=== PATIENT | male | born 1960 | race Caucasian/White ===

== ENCOUNTER 2016-10-14 00:05 | Day surgery (SDC) | payer OTHER ==
[~2016-10-14] VITALS: Ht 177.8 cm; Wt 86.2 kg
[~2016-10-14 00:05] MED LIST: FLUC150T48 PO; LEVO100T6 PO
[2016-10-14] MEDS ORDERED: fentaNYL-PF 50 mCg/mL 2 mL Inj IVPUSH PRN (06:00)
[2016-10-14] MEDS ORDERED: 0.9% Sodium Chloride 1,000 ML IV SCH (06:00)
[2016-10-14] MEDS ORDERED: Sodium Chloride LOK Flush 10 mL Syringe IV PRN (06:00)
[2016-10-14] MEDS ORDERED: NPR500T PO (08:10)
[2016-10-14 08:11] VITALS: BP 137/79; PULSE 64; RESP 16; O2SAT 98
[2016-10-14 09:19] VITALS: BP 112/71; PULSE 55; RESP 16; O2SAT 96
[2016-10-14 09:29] VITALS: BP 112/71; PULSE 52; RESP 16; O2SAT 97
[2016-10-14 09:49] VITALS: BP 122/70; PULSE 60; RESP 16; O2SAT 98
--- NOTE | 2016-10-14 16:29 | ENDO ---
[address] [address] ENDOSCOPY PROCEDURE PATIENT: JAMSHID ARAUJO : 1960 MR#: [id number] ADMIT: 10/14/2016 JOB ID: [id number] DATE: 10/14/2016 PROCEDURE: Colonoscopy. INDICATIONS: Screening. The patient's ASA classification is 1. Mallampati score was 1. MEDICATIONS: 1. Versed 4 mg. 2. Fentanyl 100 mcg. INSTRUMENT USED: PCF H 180 AL. Prep quality was fair. PROCEDURE DETAILS: After informed consent was obtained, the patient was brought into the GI suite, where he was placed on oxygen via nasal cannula and monitored with continuous pulse oximeter, telemetry and blood pressure monitoring. A time-out was performed. Then, he was placed in the left lateral decubitus position and medications were administered for sedation. Digital rectal examination was performed, which revealed what appeared to be a healed scar on the left perianal area consistent with patient's prior history of a rectal abscess approximately 10-12 years ago. He was complaining of some pain at that site. I do not see any evidence of induration of the mucosa or any drainage noted at the site. Digital rectal examination was performed, which was otherwise unremarkable. He had some mild tenderness in the anus with digital palpation. At this point, the colonoscope was then placed to the rectum and advanced under direct visualization to the cecum, which was identified by the presence of the ileocecal valve and appendiceal orifice. Once the cecum was reached, the colonoscope was withdrawn back into the rectum and retroflexion was performed. Following retroflexion, the scope was then slowly withdrawn and the anal canal was examined and appeared unremarkable. IMPRESSION: Normal colonoscopy. RECOMMENDATIONS: Repeat colonoscopy in 10 years, sooner if symptoms should dictate. COMPLICATIONS: None. ESTIMATED BLOOD LOSS: 0.
== END 2016-10-14 23:59 | disposition home or self-care (01) ==
LOC: END 00:05
PROVIDERS: ATTEND Internal Medicine Gastroenterology
DX: Z12.11 Encounter for screening for malignant neoplasm of colon (principal)
CPT/HCPCS: G0121; G0500; J7030